=== PATIENT | male | born 1985 | race Caucasian/White ===

== ENCOUNTER 2023-08-08 16:58 | Emergency (ER) | payer SELFPAY ==
[2023-08-08] MEDS ORDERED: Ibuprofen 800 MG TAB ONE (17:37)
== END 2023-08-08 18:41 | disposition home or self-care (01) ==
LOC: ERS 16:58
DX: M25.572 Pain in left ankle and joints of left foot (principal); F17.200 Nicotine dependence, unspecified, uncomplicated